=== PATIENT | male | born 1995 | race Caucasian/White ===

== ENCOUNTER 2018-07-11 17:35 | Emergency (ER) | payer MEDICAID, OTHER ==
[2018-07-11] MEDS: FAMOTIDINE 20 MG TAB PO (21:39)
[2018-07-11] MEDS: LIDOCAINE/MYLANTA 40 ML BTL PO (21:39)
[2018-07-11] MEDS: BELLADONNA/PHENOBARBITAL TAB PO (21:39)
== END 2018-07-11 21:55 | disposition left against medical advice (07) ==
LOC: FTE 21:55
DX: R10.13 Epigastric pain (principal); F17.210 Nicotine dependence, cigarettes, uncomplicated
CPT/HCPCS: 76705; 76775; 99284-25

== ENCOUNTER 2018-07-22 13:16 | Emergency (ER) | payer MEDICAID | END 2018-07-22 15:54 | disposition home or self-care (01) | LOC: FTE 13:16 | DX: L98.9 Disorder of the skin and subcutaneous tissue, unspecified (principal) | CPT/HCPCS: 99283; Z7502 ==